=== PATIENT | male | born 2000 | race Caucasian/White ===

== ENCOUNTER 2023-03-04 16:39 | Emergency (ER) | payer BC, SELFPAY ==
[2023-03-04] VITALS (10 sets, daily range): BP systolic 134–139; BP diastolic 73–87; PULSE 80–105; RESP 18–25; TEMP 36.8; O2SAT 96–100
--- NOTE | ~2023-03-04 | CT_ITS ---
EXAMINATION: CT abdomen pelvis w con DATE: 03/04/2023 19:46 INDICATION: periumbilical pain, bleeding from umbilicus TECHNIQUE: Computed tomography (CT) of the abdomen and pelvis was performed with 100 mL Omnipaque-350 intravenous contrast. Automated exposure control and iterative reconstruction technique were employe d. The dose-length product was 1534.87 mGy-cm. COMPARISON: None. FINDINGS: Lower thorax: Unremarkable Liver: Enlarged. Diffuse fatty infiltration. Biliary/Gallbladder: Gallbladder is normal. No bile duct dilation. Pancreas: No mass or duct dilation. Spleen: Normal. Adrenals:No mass. Kidneys: No suspicious mass, obstructing stone, or hydronephrosis. GI tract: No small or large bowel dilation. Normal appendix. Mesentery/Peritoneum: No ascites, mass, or free air. Retroperitoneum: No mass. Pelvis: Pelvic organs are within normal limits. Soft Tissues: Mild fat stranding, dermal thickening, and hyperemia at the umbilicus. Small fat-contai jonathon umbilical hernia. Bones: No acute osseous finding. IMPRESSION: Mild fat stranding, dermal thickening, and hyperemia at the umbilicus, with a small fat-containing um bilical hernia. These finding may represent cellulitis in the proper clinical context. Reviewed, dictated and finalized at location [facility]. IMPRESSION: Mild fat stranding, dermal thickening, and hyperemia at the umbilicus, with a s mall fat-containing umbilical hernia. These finding may represent cellulitis in the proper clinical context.
[2023-03-04 18:40] LABS: Basophils Absolute Auto 0.1 K/mm3 (0.0-0.1); Basophils Percent Auto 0.8 % (0.2-1.2); Eosinophils Absolute Auto 0.2 K/mm3 (0-0.3); Eosinophils Percent Auto 2.4 % (0-4.4); Hematocrit 44.8 % (42.0-52.0); Hemoglobin 15.9 g/dL (14.0-18.0); Immature Granulocyte Absolute 0.03 K/mm3 (0.00-0.031); Immature Granulocyte Percent A 0.4 % (0-0.5); Lymphocytes Absolute Auto 2.49 K/mm3 (0.9-3.2); Lymphocytes Percent Auto 33.5 % (18.3-44.2); Mean Corpuscular HGB Conc 35.5 g/dl (32-36); Mean Corpuscular Hemoglobin 31.5 pg (26-34); Mean Corpuscular Volume 88.9 fl (80-100); Mean Platelet Volume 10.1 fl (7.4-10.4); Monocytes Absolute Auto 0.7 K/mm3 (0.1-0.6); Neutrophils Percent Auto 53.9 % (45.5-73.1); Platelet Count Result 231 k/mm3 (150-375); Red Blood Count 5.04 M/mm3 (4.6-6.20); Red Cell Distribution Width 12.1 % (11.5-14.5); White Blood Count 7.4 K/mm3 (4.5-10.0)
[2023-03-04 18:51] LABS: Alanine Aminotransferase 170 U/L (6-50); Albumin Level 4.8 g/dL (3.5-5.1); Alkaline Phosphatase 58 U/L (38-126); Anion Gap 10 mmol/L (8-16); Aspartate Amino Transferase 74 U/L (17-59); Bilirubin,Total 0.6 mg/dL (0.2-1.3); Blood Urea Nitrogen 11 mg/dL (9-20); Calcium 9.4 mg/dL (8.4-10.2); Carbon Dioxide 25 mmol/L (22-30); Chloride 104 mmol/L (98-107); Estimated CRCL calculation 124 ml/min; Estimated Glomerular Filt Rate > 60; Glucose 104 mg/dL (65-110); Lipase 139 U/L (23-300); Potassium 3.6 mmol/L (3.4-5.0); Sodium 139 mmol/L (137-145)
--- NOTE | 2023-03-04 19:11 | ED.ABDPAIN ---
HPI - Abdominal Pain General Chief Complaint: Abdominal Pain Stated Complaint: blood in belly button Time Seen by Provider: 03/04/23 18:10 Source: patient Mode of arrival: ambulatory Limitations: no limitations History of Present Illness HPI narrative: Patient is a 23-year-old male who presents to the ED with report of abdominal pain and bleeding from his bellybutton. Patient reports having pain in his mid abdomen/periumbilical region since Thursday. Pain has been intermittent. He then noticed bleeding from his umbilicus today. He denies any known injury to his umbilicus. Denies putting anything into his bellybutton. Denies nausea, vomiting, diarrhea, constipation, fevers. Related Data Allergies Allergy/AdvReac Type Severity Reaction Status Date / Time No Known Allergies Allergy Verified 03/04/23 16:48 Review of Systems Review of Systems: CONSTITUTIONAL: Denies fever, chills, or sweats. RESPIRATORY: Denies dyspnea. GASTROINTESTINAL: See HPI. GENITOURINARY: Denies dysuria or hematuria. SKIN: See HPI. MUSCULOSKELETAL: Denies back pain, joint pain, or myalgia. All systems reviewed & are unremarkable except as noted in HPI and below Exam Narrative: GENERAL: Well appearing, obese with BMI of 32.0, non-toxic, in no acute distress. HEAD: Normocephalic, atraumatic. NECK: Supple. No adenopathy, no masses. RESPIRATORY: Airway patent, respirations nonlabored. Clear to auscultation bilaterally, no rales, rhonchi, wheezing. CARDIOVASCULAR: Regular rate and rhythm without murmurs, rubs, or gallops. Radial pulses 2+ and equal bilaterally. ABDOMINAL: Soft, mild tenderness in right mid abdomen, periumbilical region, supraumbilical region, nondistended, no hepatosplenomegaly. Normoactive BS. Umbilicus with mild amount of dark red sanguinous discharge. No obvious wounds. No abscess. MUSCULOSKELETAL: Moves all extremities. Strength/ROM intact without gross deformities. SKIN: Warm, dry, normal color. No rashes. NEURO: A&O X3. Speech clear. Cranial nerves II-XII grossly intact. Steady gait. No ataxic movements. PSYCHIATRIC: Appropriate mood and affect. Normal interaction. Course Vital Signs Vital signs: Vital Signs Temperature 98.2 F 03/04/23 16:42 Pulse Rate 105 H 03/04/23 16:42 Respiratory Rate 20 03/04/23 16:42 Blood Pressure 134/87 03/04/23 16:42 Pulse Oximetry 96 03/04/23 16:42 Oxygen Delivery Room Air 03/04/23 16:42 Temperature 98.2 F 03/04/23 16:42 Pulse Rate 98 03/04/23 20:24 Respiratory Rate 20 03/04/23 20:24 Blood Pressure 137/80 03/04/23 20:24 Pulse Oximetry 98 03/04/23 20:24 Oxygen Delivery Room Air 03/04/23 16:42 MDM - Abdominal Pain MDM Narrative Medical decision making narrative: Patient presented to ED with several day history of periumbilical abdominal pain, bleeding noted from umbilicus today. Patient's vitals stable upon arrival. Afebrile. CBC without leukocytosis. CMP fairly unremarkable. Transaminitis noted. No records to compare to. Lipase within normal limits. CT abdomen pelvis obtained and showing findings consistent with umbilical cellulitis. Does show small umbilical hernia, as well as fatty infiltration of the liver. Would explain transaminitis. Patient updated on lab and imaging findings. Will start patient on antibiotics. Will start Keflex and add on Flagyl due to presence of GI infection. Advised patient have close follow-up with PCP. Discussed wound care, reasons to return. Patient agrees with plan. Discharged in stable condition. Medical Records Attestation: I reviewed the patient's medical records. Lab Data Attestation: I reviewed the patient's lab results. 03/04/23 18:30 03/04/23 18:30 Labs: Lab Results 03/04/23 Range/Units 18:30 WBC 7.4 (4.5-10.0) K/mm3 RBC 5.04 (4.6-6.20) M/mm3 Hgb 15.9 (14.0-18.0) g/dL Hct 44.8 (42.0-52.0) % MCV 88.9 (80-100) fl MCH 31.5 (26-34) pg MCHC
[2023-03-04] MEDS: metroNIDAZOLE 250 MG TABLET 500 MG PO (20:22)
[2023-03-04] MEDS: CEPHALEXIN 500 MG CAPSULE PO (20:22)
== END 2023-03-04 20:29 | disposition home or self-care (01) ==
PROVIDERS: Emergency Provider Physician Assistant
DX: K42.9 Umbilical hernia without obstruction or gangrene (principal); L03.311 Cellulitis of abdominal wall
CPT/HCPCS: 36415; 74177; 80053; 83690; 85025; 99284; A9270; Q9967